=== PATIENT | female | born 1960 ===

== ENCOUNTER 2021-04-10 08:45 | Outpatient (RCR) | payer OTHER, SELFPAY ==
[2021-03-19 14:05] VITALS: BMI 31.4
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
--- NOTE | 2021-03-19 17:28 | PC.ADMIT ---
61 year old admitted to [facility] 03/19/2021 referred by [facility] as step down after inpatient admission from 03/03/2021 to 03/13/2021. Patient admitted to inpatient unit for SI with plan to jump off [employer]. Patient states she attempted suicide at age 16 and about 8 yeays ago she made a very serious attempt Patient denies SI today. Patient reports increased depression, anxiety, low energy, sleeping more, decreased appetite.Patient denies hallucinations, denies paranoia. Patient reports manic episodes at different times since her dx of Bipolar. Current dx is Bipolar disorder, current episode depressed, severe. Patient denies any substance abuse. All medications reconciled with pharmacy and patient. Patient met with [facility] for medication appointment.
--- NOTE | 2021-03-24 08:22 | PC.NURSE ---
case opened in treatment team
--- NOTE | 2021-03-25 12:19 | PC.NURSE ---
the client stayed out today to meet with her prescriber and will be in for a half day tomorrow as she has a ct scan appointment.
--- NOTE | 2021-03-26 13:12 | PC.NURSE ---
I spoke with Alessandra . She is having computer problems and has an appointment with a doctor today. She will take the rest of the day off and will return tomorrow.
--- NOTE | 2021-03-26 16:31 | HO.PHPPROGNO ---
Subjective Subjective Date of Service: 03/26/21 Reason For Visit: Major Depression Disorder Guardianship: No Medical Problems Affecting Mental Status: No Interim History: Lisy reports feeling very stressed today . She reports that recently while she was inpatient, she received some ?very bad medical diagnoses ?. She reports that she has needed to work on this, including neurology appointments, referrals, etc.. She reports sometimes having insomnia symptoms, and states ?some days are bad ?. She reports that she has spoken with her clinician and is asking that she is able to dropped to half time in order to accommodate her multiple appointments. Medication Compliance: Yes Side effects from medications: No Attending Groups: Yes Review of Systems Acute medical concerns: No Medical Review of Systems: unchanged Review of Systems Review of Systems Yes all other systems are reviewed and are negative Constitutional: Reports no additional constitutional complaints Mental Status Exam Mental Status Exam Narrative: Well-developed, well-nourished female, in NAD. No involuntary movements, no tics or tremors noted. Patient Appearance: Well Grooomed, Fatigued and Appropriate Patient Orientation: Person, Place, Time and Situation Level of Consciousness: Awake and Alert Patient Behavior: Appropriate, Cooperative and Good Eye Contact Mood Description: Appropriate, Depressed and Flat Affect Description: Appropriate, Depressed and Flat Patient Cognition Impaired: No Ability to Follow Directions: Excellent Speech Pattern: Clear, Appropriate and Coherent Memory Description: Intact Hallucinations: None Delusions: Not Present Thought Process: Intact, Goal Oriented and Linear Thought Content: positive for Intact, positive for Goal Oriented, positive for Linear and positive for Suicidal Ideation (passive, no intent/plan) Depressive Symptoms: Increased Anxiety, Diff. Making Decisions, Difficulty Sleeping, Loss of Int. in Activity, Feelings of Worthlessness, Hopelessness, Feelings of Guilt, Unhappiness, Increased Fatigue, Thoughts of /Suicide and Loss of Energy Judgement: Fair Diagnostics Vital Signs (24Hr): BMI result Body Mass Index 31.4 Assessment & Plan Assessment & Plan (1) Bipolar disorder with current episode depressed: Status: Acute Code(s): F31.30 - Bipolar disorder, current episode depressed, mild or moderate severity, unspecified Assessment and Plan: Client reports feeling stressed today, with poor sleep. Reports feeling stressed regarding multiple medical appointments she is needing to make related to a medical issue. Reports that she saw her outpatient provider last week who has made the following medication changes: A vitamin has been added that helps with nausea, although she does not remember the name of it. Ativan being temporarily increased to 2 mg b.i.d. p.r.n.. Gabapentin now 600 mg p.o. t.i.d.. No active SI, no safety concern. No other complaints regarding symptom management, feels her symptoms are overall being managed. No medication changes today. Assessment and Plan: 1. Continue to follow PHP treatment plan. 2. Continue with current medications as prescribed by outpatient provider at this time. 3. Follow-up as per protocol. Patient educated on: diagnosis, medication risk/benefits and therapeutic strategies Informed Consent: understands Reason for contiued partial hosp. stay Substantial Risk for: harm to self, inability to function and med/psych decompensation Certification I certify that partial hospital treatment is medically necessary due to the symptoms and problems resulting from the patient's mental illness and the failure to treat the patient at the partial hospital level of care would likely result in the patient requiring inpatient psychiatric care which could not be prevented at a less intensive level of care. I spent minutes with the patient and/or on the patient floor today, greater than?50% of which was spent counseling/coordinating care. Discharge Plan Discharge Attending provider: Claude Lewis Medications: Discontinued bupropion HCl 150 mg tablet extended release 24 hr 150 mg PO DAILY RF: 0 No Action duloxetine 60 mg capsule,delayed release(DR/EC) 60 mg PO BID RF: 0 gabapentin 600 mg tablet 600 mg PO BID RF: 0 lamotrigine 25 mg tablet 50 mg PO BID RF: 0 prazosin 2 mg capsule 2 mg PO BEDTIME RF: 0 trazodone 50 mg tablet 1 - 3 tab PO BEDTIME PRN (Reason: Insomnia) RF: 0 levothyroxine [Synthroid] 112 mcg tablet 112 mcg PO DAILY RF: 0 pantoprazole 40 mg Tablet,Delayed Release (Dr/Ec) 40 mg PO DAILY RF: 0 hydrocodone-acetaminophen 5-325 mg tablet 5 - 325 tab PO BID PRN (Reason: Pain) RF: 0 lorazepam 1 mg Tablet 1 mg PO BID PRN (Reason: Anxiety) RF: 0 aripiprazole [Abilify] 10 mg Tablet 10 mg PO DAILY RF: 0 lactase 3,000 unit Tablet 3,000 unit PO TID RF: 0 lithium carbonate 300 mg capsule 600 mg PO BID RF: 0 Telehealth Telehealth Location of provider rendering services: practice address Location of patient: address on file Patient Identification confirmed using: Name, : Yes Telehealth method: video Patient verbally consented to treatment: Yes Patient verbally consented to billing insurance company: Yes Patient informed of any privacy concerns related to visit: Yes Time spent with patient (mins): 15
--- NOTE | 2021-04-01 15:53 | HO.PHPPROGNO ---
Subjective Subjective Date of Service: 04/01/21 Reason For Visit: Major Depression Disorder Interim History: Patient evaluated this morning and upon interview she reports she had a manic episode over the weekend. Precipitating incident included that pt was put on antibiotic s/p ultrasound for fluid on her elbow that was painful. Says sx included rapid talking, blanking out, unintelligible, says I dont even remember what I did that night because I was just so nuts. Says she was up all night pacing. Says she has a hx of a really strong emotional time triggering a brief manic/ hypomanic episode. She then slept for about 24 hours on Wednesday to Wednesday. Says I feel fine now, has since felt in behavioral control, mood is regulated. Reviewed medications, says she has been on cymbalta for a really long time, initially put on it for fibro and arthritis despite reporting a long hx of manic and hypomanic episodes. Says her mood is good, sleep is improved. Denies SI/SIB/HI upon inquiry and says she feels safe. Medication Compliance: Yes Side effects from medications: Yes Attending Groups: Yes Review of Systems Acute medical concerns: No Medical Review of Systems: unchanged Mental Status Exam Mental Status Exam Narrative: atus Exam Narrative:?Well-developed, well-nourished female, in NAD.? No involuntary movements, no tics or tremors noted. Patient Appearance:?Well Groomed, Fatigued and Appropriate Patient Orientation:?Person, Place, Time and Situation Level of Consciousness:?Awake and Alert Patient Behavior:?Appropriate, Cooperative and Good Eye Contact Mood Description:? good Affect Description:?Appropriate, Calm Patient Cognition Impaired:?No Ability to Follow Directions:?Excellent Speech Pattern:?Clear, Appropriate and Coherent Memory Description:?Intact Hallucinations:?None Delusions:?Not Present Thought Process:?Intact, Goal Oriented and Linear Thought Content:?positive for Intact, positive for Goal Oriented, positive for Linear and positive for Suicidal Ideation (passive, no intent/plan) Judgment:?Fair Diagnostics Vital Signs (24Hr): BMI result Body Mass Index 31.4 Assessment & Plan Assessment & Plan (1) Bipolar disorder with current episode depressed: Status: Acute Code(s): F31.30 - Bipolar disorder, current episode depressed, mild or moderate severity, unspecified Assessment and Plan: Pt reports brief manic/ hypomanic episode over the weekend in which she had decreased need for sleep, racing thoughts, mood dysregulation, impulsivity, and difficulty organizing her thoughts. She believes this was triggered by stress from medical issue. She then slept for 24 hours and says she now feels regulated. Says she feels safe. Discussed decreasing her cymbalta 60 mg BID, as this medication is not evidenced based for bipolar disorder and may be exacerbating sx including poor sleep. Will titrate slowly, as she has been on this medication for many years. Reviewed sx of discontinuation. Will decrease to 30 mg QHS and continue 60 mg QAM and follow up as needed. 1. Continue to follow PHP treatment plan. 2. Continue with current medications as prescribed by outpatient provider at this time. 3. Follow-up as per protocol. 4. Discharge on stabilization. Certification I certify that partial hospital treatment is medically necessary due to the symptoms and problems resulting from the patient's mental illness and the failure to treat the patient at the partial hospital level of care would likely result in the patient requiring inpatient psychiatric care which could not be prevented at a less intensive level of care. I spent minutes with the patient and/or on the patient floor today, greater than?50% of which was spent counseling/coordinating care. Discharge Plan Discharge Attending provider: Claude Lewis Medications: New duloxetine [Cymbalta] 30 mg capsule,delayed release(DR/EC) 30 mg PO BID Qty: 30 RF: 0 Discontinued bupropion HCl 150 mg tablet extended release 24 hr 150 mg PO DAILY RF: 0 duloxetine 60 mg capsule,delayed release(DR/EC) 60 mg PO BID RF: 0 No Action gabapentin 600 mg tablet 600 mg PO BID RF: 0 lamotrigine 25 mg tablet 50 mg PO BID RF: 0 prazosin 2 mg capsule 2 mg PO BEDTIME RF: 0 trazodone 50 mg tablet 1 - 3 tab PO BEDTIME PRN (Reason: Insomnia) RF: 0 levothyroxine [Synthroid] 112 mcg tablet 112 mcg PO DAILY RF: 0 pantoprazole 40 mg Tablet,Delayed Release (Dr/Ec) 40 mg PO DAILY RF: 0 hydrocodone-acetaminophen 5-325 mg tablet 5 - 325 tab PO BID PRN (Reason: Pain) RF: 0 lorazepam 1 mg Tablet 1 mg PO BID PRN (Reason: Anxiety) RF: 0 aripiprazole [Abilify] 10 mg Tablet 10 mg PO DAILY RF: 0 lactase 3,000 unit Tablet 3,000 unit PO TID RF: 0 lithium carbonate 300 mg capsule 600 mg PO BID RF: 0 Stand Alone Forms: Patient Portal Discharge page
--- NOTE | 2021-04-09 17:00 | HO.PHPPROGNO ---
Subjective Subjective Date of Service: 04/08/21 Reason For Visit: Major Depression Disorder Interim History: I evaluated the pt this morning and upon interview she reports moderate benefit on lower cymbalta dose. Says I think its better. Her sleep is still up and down, but says it's always like that. She had bilateral cortisone inj in her knees. Says she felt anxious about this procedure and was sick all weekend with diarrhea and nausea, unsure if this was related to withdrawal from lowering cymbalta or due to anxiety. However, GI sx are resolving. Denies sx of boris/ hypomania. Mood is good. Medication Compliance: Yes Side effects from medications: No Attending Groups: Yes Review of Systems Acute medical concerns: No Medical Review of Systems: unchanged Mental Status Exam Mental Status Exam Narrative: Well-developed, well-nourished female, in NAD.? No involuntary movements, no tics or tremors noted. Patient Appearance:?Well Groomed, Fatigued and Appropriate Patient Orientation:?Person, Place, Time and Situation Level of Consciousness:?Awake and Alert Patient Behavior:?Appropriate, Cooperative and Good Eye Contact Mood Description:? good Affect Description:?Appropriate, Calm Patient Cognition Impaired:?No Ability to Follow Directions:?Excellent Speech Pattern:?Clear, Appropriate and Coherent Memory Description:?Intact Hallucinations:?None Delusions:?Not Present Thought Process:?Intact, Goal Oriented and Linear Thought Content:?positive for Intact, positive for Goal Oriented, positive for Linear and positive for Suicidal Ideation (passive, no intent/plan) Judgment:?Fair Diagnostics Vital Signs (24Hr): BMI result Body Mass Index 31.4 Assessment & Plan Assessment & Plan (1) Bipolar disorder with current episode depressed: Status: Acute Code(s): F31.30 - Bipolar disorder, current episode depressed, mild or moderate severity, unspecified Assessment and Plan: Pt denies sx of manic/ hypomanic, has been tolerating lower cymbalta dose at 30 mg QHS and continue 60 mg QAM. Will continue at this dose for one more week due to risk of discontinuation syndrome and will continue to titrate down to 30 mg BID as tolerated due to lack of benefit and possible exacerbation for mood instability. Says she feels safe, currently stable. 1. Continue to follow PHP treatment plan. 2. Continue with current medications as prescribed by outpatient provider at this time. 3. Follow-up as per protocol. 4. Discharge on stabilization. Certification I certify that partial hospital treatment is medically necessary due to the symptoms and problems resulting from the patient's mental illness and the failure to treat the patient at the partial hospital level of care would likely result in the patient requiring inpatient psychiatric care which could not be prevented at a less intensive level of care. I spent minutes with the patient and/or on the patient floor today, greater than?50% of which was spent counseling/coordinating care. Discharge Plan Discharge Attending provider: Claude Lewis Medications: New duloxetine [Cymbalta] 30 mg capsule,delayed release(DR/EC) 30 mg PO BID Qty: 30 RF: 0 Discontinued bupropion HCl 150 mg tablet extended release 24 hr 150 mg PO DAILY RF: 0 duloxetine 60 mg capsule,delayed release(DR/EC) 60 mg PO BID RF: 0 No Action gabapentin 600 mg tablet 600 mg PO BID RF: 0 lamotrigine 25 mg tablet 50 mg PO BID RF: 0 prazosin 2 mg capsule 2 mg PO BEDTIME RF: 0 trazodone 50 mg tablet 1 - 3 tab PO BEDTIME PRN (Reason: Insomnia) RF: 0 levothyroxine [Synthroid] 112 mcg tablet 112 mcg PO DAILY RF: 0 pantoprazole 40 mg Tablet,Delayed Release (Dr/Ec) 40 mg PO DAILY RF: 0 hydrocodone-acetaminophen 5-325 mg tablet 5 - 325 tab PO BID PRN (Reason: Pain) RF: 0 lorazepam 1 mg Tablet 1 mg PO BID PRN (Reason: Anxiety) RF: 0 aripiprazole [Abilify] 10 mg Tablet 10 mg PO DAILY RF: 0 lactase 3,000 unit Tablet 3,000 unit PO TID RF: 0 lithium carbonate 300 mg capsule 600 mg PO BID RF: 0 Stand Alone Forms: Patient Portal Discharge page
--- NOTE | 2021-04-10 12:58 | PC.NURSE ---
Patient scheduled to discharge from the program today. Stated she feels great and fine, feeling ready for d/c. Denied safety concerns, no SI. Reviewed patient medications with patient, reports taking them as prescribed.
--- NOTE | 2021-04-11 07:43 | PC.NURSE ---
Message left for Janeen Kruse [facility] re clients dc from the program
== END 2021-04-11 07:08 | disposition home or self-care (01) ==
LOC: HO.PHPA 08:45
PROVIDERS: Visit Provider Psychiatry & Neurology Psychiatry
DX: F31.30 Bipolar disorder, current episode depressed, mild or moderate severity, unspecified (principal); Z79.899 Other long term (current) drug therapy
CPT/HCPCS: 90791; 90853